=== PATIENT | female | born 1960 | race Caucasian/White ===

== ENCOUNTER 2020-03-26 06:58 | Emergency (ER) | payer MEDICAID ==
[~2020-03-26] VITALS: Ht 149.9 cm; Wt 52.2 kg
[2020-03-26 06:58] VITALS: BP_SYST 152
--- NOTE | 2020-03-26 06:58 | NUR ---
BROUGHT IN BY [facility], PLACED IN BED #5 AND TRIAGED. REPORT GIVEN TO KAYY
--- NOTE | 2020-03-26 07:00 | NUR ---
Urine sample collected and sent to lab
--- NOTE | 2020-03-26 07:00 | NUR ---
Pt bib ambulance from home with c/o abdominal pain at home 08/01 x1day, reports feeling better now and pain is at a 2. Denies n/v. V/S stable, pt is afebrile. Currently resting in bed, will continue to monitor.
--- NOTE | 2020-03-26 07:05 | NUR ---
ER Dr. Crowe at bedside examining patient.
--- NOTE | 2020-03-26 07:10 | NUR ---
# 20 gauge angiocath placed to RAC. Use of asceptic technique. Opsite placed over site. Blood return noted. Blood for lab drawn from site. Flushed with 10 cc of normal saline. No evidence of infiltration noted. Patient tolerated well.
[2020-03-26 07:43] LABS: BILIRUBIN,URINE NEGATIVE (NEGATIVE); BLOOD, URINE 3+ (NEGATIVE); COLOR,URINE YELLOW (YELLOW); GLUCOSE,URINE NEGATIVE (NEGATIVE); KETONES,URINE 1+ (NEGATIVE); LEUKOCYTE ESTERASE ,URINE 1+ (NEGATIVE); NITRITE, URINE NEGATIVE (NEGATIVE); PH,URINE 7.5 (5.0-8.0); PROTEIN URINE NEGATIVE (NEGATIVE)
[2020-03-26 07:45] LABS: BASOPHILS # (AUTO) 0.1 K/uL (0.0-0.2); HEMATOCRIT 40.3 % (36-48); HEMOGLOBIN 13.5 g/dL (12.0-16.0)
[2020-03-26 07:46] LABS: CLARITY/URINE SLIGHTLY HAZY (CLEAR)
[2020-03-26 07:47] LABS: BASOPHILS % (AUTO) 0.7 % (0.0-2.0); EOSINOPHILS # (AUTO) 0.2 K/uL (0.0-0.4); EOSINOPHILS % (AUTO) 1.8 % (0.0-4.0); LYMPHOCYTES % (AUTO) 11.2 % (20.5-51.5); MEAN CORPUSCULAR HEMOGLOBIN 31 pg (27-31); MEAN CORPUSCULAR HGB CONC 33 % (32-36); MEAN CORPUSCULAR VOLUME 94 fL (79.0-98.0); MONOCYTES # (AUTO) 0.5 K/uL (0.0-1.0); MONOCYTES % (AUTO) 4.9 % (1.7-9.3); NEUTROPHILS # (AUTO) 7.6 K/uL (1.8-7.7); NEUTROPHILS % (AUTO) 81.4 % (40.0-70.0); PLATELET COUNT (AUTO) 252 K/uL (130-430); RED BLOOD CELL COUNT(AUTO) 4.31 MIL/uL (4.2-6.2); RED CELL DISTRIBUTION WIDTH 13.6 % (9.0-15.0); WHITE BLOOD COUNT (AUTO) 9.3 K/uL (4.8-10.8)
[2020-03-26 07:57] LABS: PROTHROMBIN TIME 9.9 SECS (9.5-12.5)
[2020-03-26 08:03] LABS: BACTERIA,URINE MANY /HPF (None Seen)
[2020-03-26 08:04] LABS: YEAST,URINE None Seen /HPF (None Seen)
[2020-03-26 08:05] LABS: CALCIUM OXALATE CRYSTALS,UR None Seen /HPF (None Seen); CALCIUM PHOSPHATE CRYSTALS,UR None Seen /HPF (None Seen); OTHER CRYSTALS,URINE None Seen /HPF (None Seen); TRICHOMONAS,URINE None Seen /HPF (None Seen); TRIPLE PHOSPHATE CRYSTAL,UR None Seen /HPF (None Seen); URIC ACID CRYSTALS,URINE None Seen /HPF (None Seen); URINE AMORPHOUS PHOSPHATES None Seen /HPF (None Seen); URINE AMORPHOUS URATE None Seen /HPF (None Seen)
[2020-03-26 08:06] LABS: COARSE GRANULAR CASTS,URINE None Seen /LPF (None Seen); FINE GRANULAR CASTS,URINE None Seen /LPF (None Seen); HYALINE CASTS, URINE None Seen /LPF (None Seen); MUCUS,URINE None Seen /LPF (None Seen); OTHER CASTS, URINE None Seen /LPF (None Seen); WAXY CASTS,URINE None Seen /LPF (None Seen)
[2020-03-26 08:26] LABS: CALCIUM 8.8 mg/dL (8.4-11.0); CREATININE 0.89 mg/dL (0.55-1.30)
[2020-03-26 08:33] LABS: TOTAL BILIRUBIN 0.4 mg/dL (0.0-1.0)
[2020-03-26] MEDS ORDERED: POTASSIUM CHLORIDE 20 MEQ TAB.PRT.SR PO ONE (09:00)
[2020-03-26 09:29] VITALS: BP_SYST 152
--- NOTE | 2020-03-26 09:29 | NUR ---
Potassium supplement given PO as ordered.
--- NOTE | 2020-03-26 09:30 | NUR ---
Patient given written and verbal discharge instructions and verbalizes understanding. ER MD discussed with patient the results and treatment provided. Patient in stable condition. ID arm band removed. IV catheter removed intact and dressing applied, no active bleeding. Rx of Tramadol, Macrobid and K-Dur given. Patient educated on pain management and to follow up with PMD. Pain Scale 0 Opportunity for questions provided and answered. Medication side effect fact sheet provided.
== END 2020-03-26 09:30 | disposition home or self-care (01) ==
LOC: SED 06:58
DX: N39.0 Urinary tract infection, site not specified (principal); R10.32 Left lower quadrant pain; E87.6 Hypokalemia
CPT/HCPCS: 36415; 74018; 80053; 81000-TC; 82150-TC; 83690-TC; 85025; 85610-TC; 87086; 99284

== ENCOUNTER 2022-08-09 22:20 | Emergency (ER) | payer MEDICAID ==
[~2022-08-09] VITALS: Ht 157.5 cm; Wt 54.4 kg
--- NOTE | 2022-08-09 22:30 | NUR ---
MD with pt in triage.
[2022-08-09] MEDS ORDERED: DIPH25CA83 PO (22:35)
--- NOTE | 2022-08-09 22:40 | NUR ---
Pt from home with c/o bug bites after going to the park. Pt hasbug bits on left arm and left back side. Pt states they are itchy. VSS. Pt to remian in waiting room.
[2022-08-09 22:43] VITALS: BP_SYST 140
[2022-08-09 23:11] VITALS: BP_SYST 140
--- NOTE | 2022-08-09 23:11 | NUR ---
Patient given written and verbal discharge instructions and verbalizes understanding. ER Dr. Hinds discussed with patient the results and treatment provided. Patient in stable condition. ID arm band removed. Rx of benadryl given. Patient educated on pain management and to follow up with PMD. Pain Scale 0. Opportunity for questions provided and answered. Medication side effect fact sheet provided.
== END 2022-08-09 23:11 | disposition home or self-care (01) ==
LOC: SED 22:20
DX: R21 Rash and other nonspecific skin eruption (principal); Z79.899 Other long term (current) drug therapy
CPT/HCPCS: 99282